=== PATIENT | female | born 1995 | race Caucasian/White ===

== ENCOUNTER → 2016-12-10 | Outpatient (CLI) | payer BC ==
[2016-12-10 08:36] LABS: BASOPHILS # (AUTO) 0.01 10*3/UL; BASOPHILS % (AUTO) 0.1 % (0-1); EOSINOPHILS % (AUTO) 0.5 % (0-8); HEMATOCRIT 37.9 % (37.0-47.0); HEMOGLOBIN 12.9 g/dL (12.0-16.0); IMM GRAN % (AUTO) 0.5 % (0-5); IMM GRAN# (AUTO) 0.05 10*3/UL; LYMPHOCYTES # (AUTO) 2.65 10*3/uL; LYMPHOCYTES % (AUTO) 24.2 % (10-50); MEAN CORPUSCULAR HEMOGLOBIN 28.9 PG (27-31); MEAN PLATELET VOLUME 9.7 FL (7.4-12.2); MONOCYTES # (AUTO) 0.61 10*3/UL (0.3-0.8); MONOCYTES % (AUTO) 5.6 % (5-15); NEUTROPHILS # (AUTO) 7.56 10*3/UL; NEUTROPHILS % (AUTO) 69.1 % (50-80); RDW COEFFICIENT OF VARIATION 13.6 % (11.5-14.5); RED BLOOD COUNT 4.46 10^6/uL (4.20-5.40); WHITE BLOOD COUNT 10.94 10^3/uL (4.8-10.8)
[2016-12-10 08:37] LABS: PLATELET MORPHOLOGY COMMENT NORMAL MORPHOLOGY (NORM)
[2016-12-12 14:05] LABS: ANTISTREP-O TITER 268 IU/mL (0 - 530)
[2016-12-12 15:16] LABS: COLD AGGLUTININ SCREEN Positive (Negative)
[2016-12-12 23:47] LABS: CYCLIC CITRULLINATED PEPTIDEAB <15.6 U (())
[2016-12-12 23:48] LABS: ANTI-DNASE B TITER 285 U/mL (0 - 300); COLD AGGLUTININ TITER <1:64 titer (<1:64); RHEUMATOID FACTOR <15 IU/mL (<15)
[2016-12-13 14:50] LABS: ANTINUCLEAR ANTIBODY 0.2 U (())
== END ==
LOC: LAB 07:59
DX: L50.2 Urticaria due to cold and heat (principal); F17.210 Nicotine dependence, cigarettes, uncomplicated; Z87.442 Personal history of urinary calculi
CPT/HCPCS: 36415; 84550; 85025; 86038; 86060; 86140; 86156; 86157; 86200; 86215; 86431